=== PATIENT | female | born 1940 | race Two or more races ===

== ENCOUNTER 2022-02-02 20:19 | Inpatient (IN) | payer MEDICARE, OTHER ==
[~2022-02-02] VITALS: Ht 162.6 cm; Wt 73.5 kg
[2022-02-02] MEDS ORDERED: ACETAMINOPHEN 325 MG TABLET PO PRN (23:30)
[2022-02-02] MEDS ORDERED: MAG HYDROX/AL HYDROX/SIMETH 30 ML UDC PO PRN (23:30)
[2022-02-02] MEDS ORDERED: DEXTROSE 50%-WATER 50 ML DISP.SYRIN IV PRN (23:30)
[2022-02-02] MEDS ORDERED: MAGNESIUM HYDROXIDE 30 ML UDC PO PRN (23:30)
[2022-02-02] MEDS ORDERED: Z GUARD REMEDY 4 OZ OINT TP PRN (23:30)
[2022-02-02] MEDS ORDERED: ONDANSETRON HCL/PF 4 MG/2 ML VIAL IVP PRN (23:30)
[2022-02-03] VITALS: BP 150/66
[2022-02-03] MEDS ORDERED: ASPIRIN 81 MG TAB.CHEW PO SCH ×2 (01:30)
[2022-02-03 04:00] VITALS: BP 134/69
[2022-02-03 06:34] LABS: BASOPHILS # (AUTO) 0.1 K/uL (0.0-0.2); BASOPHILS % (AUTO) 1.8 % (0.0-2.0); EOSINOPHILS % (AUTO) 5.1 % (0.0-6.0); HEMATOCRIT 28 % (33-45); HEMOGLOBIN 9.2 g/dL (11.5-14.8); LYMPHOCYTES # (AUTO) 1.4 K/uL (0.8-4.8); LYMPHOCYTES % (AUTO) 28.6 % (20.0-44.0); MEAN CORPUSCULAR HGB CONC 33 g/dl (31.0-36.0); MEAN CORPUSCULAR VOLUME 76 fL (82-100); MONOCYTES # (AUTO) 0.5 K/uL (0.1-1.30); MONOCYTES % (AUTO) 9.4 % (2.0-12.0); NEUTROPHILS # (AUTO) 2.8 K/uL (1.8-8.9); NEUTROPHILS % (AUTO) 55.1 % (43.0-81.0); PLATELET COUNT (AUTO) 141 K/uL (150-450); RED BLOOD CELL COUNT(AUTO) 3.68 MIL/uL (4.0-5.2); WHITE BLOOD COUNT (AUTO) 5.1 K/uL (4.3-11.0)
[2022-02-03 07:07] LABS: CHOLESTEROL 93 mg/dL (<200); HDL CHOLESTEROL 36 mg/dL (40-60); LDL 38 mg/dL (0-99); TRIGLYCERIDES 107 mg/dL (30-150)
[2022-02-03 07:21] LABS: CALCIUM, SERUM 8.4 mg/dL (8.5-10.1); CARBON DIOXIDE 31 mmol/L (21-32); CHLORIDE 105 mmol/L (98-107); CREATININE 1.4 mg/dL (0.6-1.3); GLUCOSE 254 mg/dL (74-106); MAGNESIUM 2.3 mg/dL (1.8-2.4); PHOSPHORUS 3.4 mg/dL (2.5-4.9); POTASSIUM 4.3 mmol/L (3.5-5.1); SODIUM SERUM 140 mmol/L (136-145); UREA NITROGEN, BLOOD 30 mg/dL (7-18)
[2022-02-03 08:00] VITALS: BP 127/52
[2022-02-03] MEDS: BLOOD SUGAR DIAGNOSTIC 1 EACH STRIP VI SCH ×4 (08:06→21:48)
[2022-02-03] MEDS: ASPIRIN 81 MG TAB.CHEW PO SCH (08:38)
[2022-02-03] MEDS: INSULIN REGULAR, HUMAN 100 UNIT/ML 3 ML VIAL SQ PRN ×3 (08:41→17:58)
[2022-02-03] MEDS ORDERED: ALEN70TA80 PO (08:46)
[2022-02-03] MEDS ORDERED: PARO10TA86 PO (08:46)
[2022-02-03] MEDS ORDERED: AMLO5TAB4 PO (08:46)
[2022-02-03] MEDS ORDERED: PREG100C PO (08:46)
[2022-02-03] MEDS ORDERED: POLY15DR40 EACHEYE (08:46)
[2022-02-03] MEDS ORDERED: PHEN57OI20 RC (08:46)
[2022-02-03] MEDS ORDERED: ERGO500093 PO (08:46)
[2022-02-03] MEDS ORDERED: CALC500T52 PO (08:46)
[2022-02-03] MEDS ORDERED: MAGN400O6 PO (08:46)
[2022-02-03] MEDS ORDERED: RIVA2.5T PO (08:46)
[2022-02-03] MEDS ORDERED: MULT-447 PO (08:46)
[2022-02-03] MEDS ORDERED: ACET-868 PO (08:46)
[2022-02-03] MEDS ORDERED: SENN-261 PO (08:46)
[2022-02-03] MEDS ORDERED: INSU100V7 SQ (08:46)
[2022-02-03] MEDS ORDERED: NA P133E RC (08:46)
[2022-02-03] MEDS ORDERED: DOCU-141 PO (08:46)
[2022-02-03] MEDS ORDERED: FURO-144 PO (08:46)
[2022-02-03] MEDS ORDERED: TRAM50TA2 PO (08:46)
[2022-02-03] MEDS ORDERED: GLUC1KIT IM (08:46)
[2022-02-03] MEDS ORDERED: BUPR100T5 PO (08:46)
[2022-02-03] MEDS ORDERED: CRAN425C6 PO (08:46)
[2022-02-03] MEDS ORDERED: CARV3.122 PO (08:46)
[2022-02-03] MEDS ORDERED: INSU100V39 SQ ×2 (08:46)
[2022-02-03] MEDS ORDERED: CLOB15OI3 TP (08:46)
[2022-02-03] MEDS ORDERED: ATOR40TA PO (08:46)
[2022-02-03] MEDS ORDERED: ASPI-1420 PO (08:46)
[2022-02-03] MEDS ORDERED: ASPIRIN EC 81 MG TABLET.DR PO SCH (10:00)
[2022-02-03] MEDS: PAROXETINE HCL 10 MG TABLET PO SCH (10:21)
[2022-02-03] MEDS: AMLODIPINE BESYLATE 5 MG TABLET PO SCH (10:22)
[2022-02-03] MEDS: CARVEDILOL 3.125 MG TABLET PO SCH ×2 (10:22→17:56)
[2022-02-03] MEDS: PREGABALIN 100 MG CAPSULE PO SCH ×2 (10:22→17:56)
[2022-02-03] MEDS ORDERED: GLUCAGON,HUMAN RECOMBINANT 1 MG/VIAL VIAL IM PRN (10:30)
[2022-02-03 10:40] LABS: THYROID STIMULATING HORMONE 1.639 uIU/mL (0.358-3.74)
[2022-02-03 12:00] VITALS: BP 145/53
[2022-02-03 16:00] VITALS: BP 111/50
[2022-02-03] MEDS: RIVAROXABAN 10 MG TABLET PO SCH (17:58)
[2022-02-03 20:53] VITALS: BP 109/49
[2022-02-03] MEDS: ATORVASTATIN 40 MG TABLET PO SCH (21:48)
[2022-02-03] MEDS: *INSULIN REGULAR(HUMULIN R)HUM 100 UNIT/ML VIAL SQ PRN (21:56)
[2022-02-03] MEDS: ZOLPIDEM TARTRATE 5 MG TABLET PO PRN (22:19)
[2022-02-04] VITALS: BP 100/44
[2022-02-04 04:00] VITALS: BP 143/49
[2022-02-04 07:06] LABS: BASOPHILS # (AUTO) 0.1 K/uL (0.0-0.2); BASOPHILS % (AUTO) 1.2 % (0.0-2.0); EOSINOPHILS % (AUTO) 5.3 % (0.0-6.0); HEMATOCRIT 28 % (33-45); HEMOGLOBIN 9.1 g/dL (11.5-14.8); LYMPHOCYTES # (AUTO) 1.4 K/uL (0.8-4.8); LYMPHOCYTES % (AUTO) 25.4 % (20.0-44.0); MEAN CORPUSCULAR HGB CONC 33 g/dl (31.0-36.0); MEAN CORPUSCULAR VOLUME 77 fL (82-100); MONOCYTES # (AUTO) 0.5 K/uL (0.1-1.30); MONOCYTES % (AUTO) 8.7 % (2.0-12.0); NEUTROPHILS # (AUTO) 3.3 K/uL (1.8-8.9); NEUTROPHILS % (AUTO) 59.4 % (43.0-81.0); PLATELET COUNT (AUTO) 142 K/uL (150-450); RED BLOOD CELL COUNT(AUTO) 3.63 MIL/uL (4.0-5.2); WHITE BLOOD COUNT (AUTO) 5.6 K/uL (4.3-11.0)
[2022-02-04] MEDS: BLOOD SUGAR DIAGNOSTIC 1 EACH STRIP VI SCH ×4 (07:30→21:35)
[2022-02-04 07:36] LABS: ALANINE AMINOTRANSFERASE 17 U/L (12-78); ALBUMIN 2.9 g/dL (3.4-5.0); ALKALINE PHOSPHATASE 51 U/L (46-116); ASPARTATE AMINOTRANSFERASE 16 U/L (15-37); BILIRUBIN,TOTAL 0.3 mg/dL (0.2-1.0); CALCIUM, SERUM 8.5 mg/dL (8.5-10.1); CARBON DIOXIDE 30 mmol/L (21-32); CHLORIDE 108 mmol/L (98-107); CREATININE 1.3 mg/dL (0.6-1.3); GLUCOSE 178 mg/dL (74-106); MAGNESIUM 2.4 mg/dL (1.8-2.4); PHOSPHORUS 3.6 mg/dL (2.5-4.9); POTASSIUM 4.3 mmol/L (3.5-5.1); SODIUM SERUM 142 mmol/L (136-145); TOTAL PROTEIN, SERUM 5.9 g/dL (6.4-8.2); UREA NITROGEN, BLOOD 26 mg/dL (7-18)
[2022-02-04 08:00] VITALS: BP 143/49
[2022-02-04] MEDS: RIVAROXABAN 10 MG TABLET PO SCH ×2 (09:00→18:14)
[2022-02-04] MEDS: PAROXETINE HCL 10 MG TABLET PO SCH (09:30)
[2022-02-04] MEDS: ASPIRIN 81 MG TAB.CHEW PO SCH (10:54)
[2022-02-04] MEDS: AMLODIPINE BESYLATE 5 MG TABLET PO SCH (10:55)
[2022-02-04] MEDS: PREGABALIN 100 MG CAPSULE PO SCH ×2 (10:56→18:12)
[2022-02-04] MEDS: CARVEDILOL 3.125 MG TABLET PO SCH ×2 (11:04→18:12)
[2022-02-04 12:00] VITALS: BP 141/50
[2022-02-04] MEDS: INSULIN REGULAR, HUMAN 100 UNIT/ML 3 ML VIAL SQ PRN (12:18)
[2022-02-04 16:00] VITALS: BP 136/55
[2022-02-04] MEDS: *INSULIN REGULAR(HUMULIN R)HUM 100 UNIT/ML VIAL SQ PRN ×2 (18:04→21:42)
[2022-02-04 20:00] VITALS: BP 138/63
[2022-02-04] MEDS: ATORVASTATIN 40 MG TABLET PO SCH (21:35)
[2022-02-05] VITALS: BP 116/45
[2022-02-05 04:00] VITALS: BP 128/52
[2022-02-05] MEDS: IV NS 0.9% 1,000 ML IV PRN (04:02)
[2022-02-05 08:00] VITALS: BP 137/50
[2022-02-05] MEDS: BLOOD SUGAR DIAGNOSTIC 1 EACH STRIP VI SCH ×4 (08:20→22:08)
[2022-02-05] MEDS: INSULIN REGULAR, HUMAN 100 UNIT/ML 3 ML VIAL SQ PRN ×3 (08:42→18:08)
[2022-02-05] MEDS: PAROXETINE HCL 10 MG TABLET PO SCH (08:48)
[2022-02-05] MEDS: ASPIRIN 81 MG TAB.CHEW PO SCH (08:48)
[2022-02-05] MEDS: AMLODIPINE BESYLATE 5 MG TABLET PO SCH (08:49)
[2022-02-05] MEDS: RIVAROXABAN 10 MG TABLET PO SCH ×2 (08:50→17:48)
[2022-02-05] MEDS: CARVEDILOL 3.125 MG TABLET PO SCH ×2 (08:51→17:46)
[2022-02-05] MEDS: PREGABALIN 100 MG CAPSULE PO SCH ×2 (08:51→17:46)
[2022-02-05 12:00] VITALS: BP 107/51
[2022-02-05] MEDS ORDERED: IOHEXOL-350 100 ML VIAL IV ONE (13:34)
[2022-02-05] MEDS ORDERED: CT SWABBABLE VALVE TRANS SET 1 EA INFUS.SET MC ONE (13:34)
[2022-02-05] MEDS ORDERED: IV NS 0.9% 250 ML IV ONE (13:34)
[2022-02-05] MEDS ORDERED: METOPROLOL TARTRATE INJ 5 MG/5 ML AMPUL ONE (13:48)
[2022-02-05] MEDS ORDERED: NITROGLYCERIN 4.9 GM SPRAY ONE (13:49)
[2022-02-05] MEDS ORDERED: METOPROLOL TARTRATE INJ 5 MG/5 ML AMPUL IVP PRN (14:00)
[2022-02-05] MEDS: NITROGLYCERIN 0.4 MG/TAB BOTTLE SL PRN (14:06)
[2022-02-05 16:00] VITALS: BP 117/61
[2022-02-05 17:57] LABS: IRON, SERUM 77 ug/dl (50-175); TOTAL IRON BINDING CAPACITY 322 ug/dl (250-450)
[2022-02-05 20:00] VITALS: BP 140/53
[2022-02-05] MEDS: *INSULIN REGULAR(HUMULIN R)HUM 100 UNIT/ML VIAL SQ PRN (22:11)
[2022-02-05] MEDS: ATORVASTATIN 40 MG TABLET PO SCH (22:13)
[2022-02-06] VITALS: BP 156/75
[2022-02-06] MEDS: IV NS 0.9% 1,000 ML IV PRN ×2 (01:05→15:33)
[2022-02-06 04:00] VITALS: BP 127/49
[2022-02-06 08:00] VITALS: BP 122/51
[2022-02-06] MEDS: BLOOD SUGAR DIAGNOSTIC 1 EACH STRIP VI SCH ×4 (08:09→21:38)
[2022-02-06] MEDS: INSULIN REGULAR, HUMAN 100 UNIT/ML 3 ML VIAL SQ PRN ×2 (08:46→12:25)
[2022-02-06] MEDS: PREGABALIN 100 MG CAPSULE PO SCH ×2 (08:47→17:16)
[2022-02-06] MEDS: RIVAROXABAN 10 MG TABLET PO SCH ×2 (08:49→17:18)
[2022-02-06] MEDS: AMLODIPINE BESYLATE 5 MG TABLET PO SCH (08:49)
[2022-02-06] MEDS: PAROXETINE HCL 10 MG TABLET PO SCH (08:50)
[2022-02-06] MEDS: ASPIRIN 81 MG TAB.CHEW PO SCH (08:50)
[2022-02-06] MEDS: CARVEDILOL 3.125 MG TABLET PO SCH ×2 (08:51→17:16)
[2022-02-06 12:00] VITALS: BP 114/45
[2022-02-06 16:00] VITALS: BP 128/47
[2022-02-06] MEDS: ATORVASTATIN 40 MG TABLET PO SCH (21:38)
[2022-02-06] MEDS: *INSULIN REGULAR(HUMULIN R)HUM 100 UNIT/ML VIAL SQ PRN (21:40)
[2022-02-06 22:00] VITALS: BP 120/52
[2022-02-07] VITALS: BP 120/52
[2022-02-07 04:00] VITALS: BP 131/68
[2022-02-07] MEDS: IV NS 0.9% 1,000 ML IV PRN ×3 (05:54→20:12)
[2022-02-07 08:00] VITALS: BP 112/55
[2022-02-07] MEDS: PREGABALIN 100 MG CAPSULE PO SCH ×2 (08:13→16:43)
[2022-02-07] MEDS: RIVAROXABAN 10 MG TABLET PO SCH ×2 (08:15→16:43)
[2022-02-07] MEDS: ASPIRIN 81 MG TAB.CHEW PO SCH (08:16)
[2022-02-07] MEDS: CARVEDILOL 3.125 MG TABLET PO SCH ×2 (08:16→16:42)
[2022-02-07] MEDS: PAROXETINE HCL 10 MG TABLET PO SCH (08:17)
[2022-02-07] MEDS: AMLODIPINE BESYLATE 5 MG TABLET PO SCH (08:17)
[2022-02-07] MEDS: INSULIN REGULAR, HUMAN 100 UNIT/ML 3 ML VIAL SQ PRN (08:19)
[2022-02-07] MEDS: BLOOD SUGAR DIAGNOSTIC 1 EACH STRIP VI SCH ×4 (08:20→22:05)
[2022-02-07] MEDS: *INSULIN REGULAR(HUMULIN R)HUM 100 UNIT/ML VIAL SQ PRN ×2 (11:52→22:07)
[2022-02-07 16:00] VITALS: BP 110/59
[2022-02-07] MEDS: GLUCERNA SHAKE 237 ML CAN PO SCH (16:44)
[2022-02-07 20:00] VITALS: BP 131/63
[2022-02-07] MEDS: ATORVASTATIN 40 MG TABLET PO SCH (22:05)
[2022-02-08] MEDS: ZOLPIDEM TARTRATE 5 MG TABLET PO PRN (00:45)
[2022-02-08 04:00] VITALS: BP 146/66
[2022-02-08 06:27] LABS: BASOPHILS # (AUTO) 0.1 K/uL (0.0-0.2); BASOPHILS % (AUTO) 1.5 % (0.0-2.0); HEMATOCRIT 27 % (33-45); HEMOGLOBIN 8.6 g/dL (11.5-14.8); LYMPHOCYTES % (AUTO) 23.6 % (20.0-44.0); MEAN CORPUSCULAR HGB CONC 32 g/dl (31.0-36.0); MEAN CORPUSCULAR VOLUME 79 fL (82-100); MONOCYTES # (AUTO) 0.4 K/uL (0.1-1.30); MONOCYTES % (AUTO) 9.4 % (2.0-12.0); NEUTROPHILS # (AUTO) 2.4 K/uL (1.8-8.9); NEUTROPHILS % (AUTO) 58.5 % (43.0-81.0); PLATELET COUNT (AUTO) 122 K/uL (150-450); WHITE BLOOD COUNT (AUTO) 4.2 K/uL (4.3-11.0)
[2022-02-08 07:14] LABS: CALCIUM, SERUM 8.1 mg/dL (8.5-10.1); CREATININE 0.9 mg/dL (0.6-1.3); MAGNESIUM 2.1 mg/dL (1.8-2.4); PHOSPHORUS 3.2 mg/dL (2.5-4.9); POTASSIUM 3.8 mmol/L (3.5-5.1)
[2022-02-08] MEDS: BLOOD SUGAR DIAGNOSTIC 1 EACH STRIP VI SCH ×4 (07:30→22:09)
[2022-02-08 08:00] VITALS: BP 147/83
[2022-02-08] MEDS: PAROXETINE HCL 10 MG TABLET PO SCH (08:59)
[2022-02-08] MEDS: PREGABALIN 100 MG CAPSULE PO SCH ×2 (09:03→16:21)
[2022-02-08] MEDS: CARVEDILOL 3.125 MG TABLET PO SCH ×2 (09:03→16:21)
[2022-02-08] MEDS: AMLODIPINE BESYLATE 5 MG TABLET PO SCH (09:03)
[2022-02-08] MEDS: RIVAROXABAN 10 MG TABLET PO SCH ×2 (09:05→16:23)
[2022-02-08] MEDS: INSULIN REGULAR, HUMAN 100 UNIT/ML 3 ML VIAL SQ PRN ×3 (09:06→17:47)
[2022-02-08] MEDS: GLUCERNA SHAKE 237 ML CAN PO SCH ×2 (09:12→16:21)
[2022-02-08] MEDS: ASPIRIN 81 MG TAB.CHEW PO SCH (09:12)
[2022-02-08 09:26] LABS: BILIRUBIN,URINE NEGATIVE (NEGATIVE); COLOR,URINE YELLOW (YELLOW); LEUKOCYTE ESTERASE ,URINE LARGE (NEGATIVE); NITRITE, URINE NEGATIVE (NEGATIVE); PROTEIN,URINE TRACE mg/dl (NEGATIVE); UGLUCOSE NEGATIVE (NEGATIVE); UROBILINOGEN,URINE 0.2 EU/dL (0.2)
[2022-02-08 09:49] LABS: BACTERIA,URINE Many /HPF (None Seen); SQUAMOUS EPITHELIAL CELL,UR Rare /HPF (None Seen); WBC,URINE TOO NUMEROUS TO COUN /HPF (0-3)
[2022-02-08 12:00] VITALS: BP 138/68
[2022-02-08] MEDS: IV NS 0.9% 1,000 ML IV PRN (14:47)
[2022-02-08 16:00] VITALS: BP 124/48
[2022-02-08] MEDS: CEFTRIAXONE 1 G in IV D5W 50 ML IV SCH (16:21)
[2022-02-08 20:00] VITALS: BP 121/43
[2022-02-08] MEDS: ATORVASTATIN 40 MG TABLET PO SCH (21:05)
[2022-02-08] MEDS: *INSULIN REGULAR(HUMULIN R)HUM 100 UNIT/ML VIAL SQ PRN (22:09)
[2022-02-09] MEDS: NITROGLYCERIN 0.4 MG/TAB BOTTLE SL PRN (02:49)
[2022-02-09 04:00] VITALS: BP 143/56
[2022-02-09 04:47] LABS: BASOPHILS # (AUTO) 0.1 K/uL (0.0-0.2); BASOPHILS % (AUTO) 1.2 % (0.0-2.0); EOSINOPHILS % (AUTO) 6.6 % (0.0-6.0); HEMATOCRIT 26 % (33-45); HEMOGLOBIN 8.2 g/dL (11.5-14.8); LYMPHOCYTES # (AUTO) 1.2 K/uL (0.8-4.8); LYMPHOCYTES % (AUTO) 22.7 % (20.0-44.0); MEAN CORPUSCULAR HGB CONC 32 g/dl (31.0-36.0); MEAN CORPUSCULAR VOLUME 78 fL (82-100); MONOCYTES # (AUTO) 0.5 K/uL (0.1-1.30); MONOCYTES % (AUTO) 10.3 % (2.0-12.0); NEUTROPHILS # (AUTO) 3.1 K/uL (1.8-8.9); NEUTROPHILS % (AUTO) 59.2 % (43.0-81.0); PLATELET COUNT (AUTO) 142 K/uL (150-450); RED BLOOD CELL COUNT(AUTO) 3.27 MIL/uL (4.0-5.2); WHITE BLOOD COUNT (AUTO) 5.2 K/uL (4.3-11.0)
[2022-02-09 05:06] LABS: ALBUMIN 2.7 g/dL (3.4-5.0); CARBON DIOXIDE 27 mmol/L (21-32); CHLORIDE 111 mmol/L (98-107); CREATININE 1.1 mg/dL (0.6-1.3); GLUCOSE 296 mg/dL (74-106); MAGNESIUM 2.1 mg/dL (1.8-2.4); PHOSPHORUS 3.2 mg/dL (2.5-4.9); POTASSIUM 4.1 mmol/L (3.5-5.1); SODIUM SERUM 143 mmol/L (136-145); UREA NITROGEN, BLOOD 14 mg/dL (7-18)
[2022-02-09 05:30] LABS: ALANINE AMINOTRANSFERASE 15 U/L (12-78); ALKALINE PHOSPHATASE 54 U/L (46-116); ASPARTATE AMINOTRANSFERASE 13 U/L (15-37); BILIRUBIN,TOTAL 0.2 mg/dL (0.2-1.0); TOTAL PROTEIN, SERUM 5.8 g/dL (6.4-8.2)
[2022-02-09] MEDS ORDERED: IV NS 0.9% 1,000 ML ONE (06:21)
[2022-02-09] MEDS ORDERED: IV SET PRIMARY PUMP SET 1 EA INFUS.SET MC ONE (06:21)
[2022-02-09] MEDS ORDERED: IODIXANOL 150 ML IV ONE (06:22)
[2022-02-09] MEDS ORDERED: NITROGLYCERIN IN 5 % DEXTROSE 0 ML IV ONE (06:23)
[2022-02-09] MEDS ORDERED: LIDOCAINE HCL/MPF 1% 30 ML VIAL IJ ONE (06:29)
[2022-02-09] MEDS ORDERED: FENTANYL PF 100MCG/2ML AMPUL ONE (07:04)
[2022-02-09] MEDS ORDERED: MIDAZOLAM HCL 2 MG/2ML VIAL ONE ×2 (07:05)
[2022-02-09] MEDS: IV NS 0.9% 1,000 ML IV PRN (07:23)
[2022-02-09] MEDS: GLUCERNA SHAKE 237 ML CAN PO SCH ×2 (08:00→17:00)
[2022-02-09 08:35] VITALS: BP 144/64
[2022-02-09 09:00] VITALS: BP 144/64
[2022-02-09] MEDS: PAROXETINE HCL 10 MG TABLET PO SCH (09:00)
[2022-02-09] MEDS: AMLODIPINE BESYLATE 5 MG TABLET PO SCH (09:00)
[2022-02-09] MEDS: CARVEDILOL 3.125 MG TABLET PO SCH ×2 (09:00→17:31)
[2022-02-09] MEDS: PREGABALIN 100 MG CAPSULE PO SCH ×2 (09:00→17:31)
[2022-02-09] MEDS: RIVAROXABAN 10 MG TABLET PO SCH ×2 (09:00→17:39)
[2022-02-09] MEDS: VALSARTAN 80 MG TABLET PO SCH (09:00)
[2022-02-09] MEDS: ASPIRIN 81 MG TAB.CHEW PO SCH (09:00)
[2022-02-09] MEDS: BLOOD SUGAR DIAGNOSTIC 1 EACH STRIP VI SCH ×4 (09:26→22:15)
[2022-02-09] MEDS: FUROSEMIDE 40 MG/4 ML VIAL IV SCH ×3 (10:48→17:31)
[2022-02-09] MEDS: INSULIN REGULAR, HUMAN 100 UNIT/ML 3 ML VIAL SQ PRN ×3 (10:56→17:51)
[2022-02-09 12:00] VITALS: BP 132/55
[2022-02-09] MEDS: CEFTRIAXONE 1 G in IV D5W 50 ML IV SCH (16:33)
[2022-02-09 19:10] VITALS: BP 134/74
[2022-02-09 20:00] VITALS: BP 138/59
[2022-02-09] MEDS: ATORVASTATIN 40 MG TABLET PO SCH (22:17)
[2022-02-09] MEDS: *INSULIN REGULAR(HUMULIN R)HUM 100 UNIT/ML VIAL SQ PRN (22:18)
[2022-02-10] VITALS: BP 134/50
[2022-02-10 04:00] VITALS: BP 114/49
[2022-02-10] MEDS: BLOOD SUGAR DIAGNOSTIC 1 EACH STRIP VI SCH ×3 (06:29→17:19)
[2022-02-10 07:22] LABS: BASOPHILS # (AUTO) 0.1 K/uL (0.0-0.2); BASOPHILS % (AUTO) 1.1 % (0.0-2.0); EOSINOPHILS % (AUTO) 7.6 % (0.0-6.0); HEMATOCRIT 27 % (33-45); LYMPHOCYTES # (AUTO) 1.3 K/uL (0.8-4.8); LYMPHOCYTES % (AUTO) 23.6 % (20.0-44.0); MEAN CORPUSCULAR HGB CONC 33 g/dl (31.0-36.0); MEAN CORPUSCULAR VOLUME 77 fL (82-100); MONOCYTES # (AUTO) 0.6 K/uL (0.1-1.30); MONOCYTES % (AUTO) 10.3 % (2.0-12.0); NEUTROPHILS # (AUTO) 3.1 K/uL (1.8-8.9); NEUTROPHILS % (AUTO) 57.4 % (43.0-81.0); PLATELET COUNT (AUTO) 139 K/uL (150-450); RED BLOOD CELL COUNT(AUTO) 3.55 MIL/uL (4.0-5.2); WHITE BLOOD COUNT (AUTO) 5.4 K/uL (4.3-11.0)
[2022-02-10 07:35] LABS: ALANINE AMINOTRANSFERASE 13 U/L (12-78); ALBUMIN 2.8 g/dL (3.4-5.0); ALKALINE PHOSPHATASE 51 U/L (46-116); ASPARTATE AMINOTRANSFERASE 17 U/L (15-37); BILIRUBIN,TOTAL 0.2 mg/dL (0.2-1.0); CALCIUM, SERUM 8.3 mg/dL (8.5-10.1); CARBON DIOXIDE 30 mmol/L (21-32); CHLORIDE 108 mmol/L (98-107); GLUCOSE 135 mg/dL (74-106); MAGNESIUM 2.1 mg/dL (1.8-2.4); PHOSPHORUS 4.3 mg/dL (2.5-4.9); POTASSIUM 3.6 mmol/L (3.5-5.1); SODIUM SERUM 142 mmol/L (136-145); UREA NITROGEN, BLOOD 16 mg/dL (7-18)
[2022-02-10 08:00] VITALS: BP 132/57
[2022-02-10] MEDS: PREGABALIN 100 MG CAPSULE PO SCH ×2 (08:38→16:40)
[2022-02-10] MEDS: CARVEDILOL 3.125 MG TABLET PO SCH ×2 (08:39→16:41)
[2022-02-10] MEDS: AMLODIPINE BESYLATE 5 MG TABLET PO SCH (08:39)
[2022-02-10] MEDS: ASPIRIN 81 MG TAB.CHEW PO SCH (08:39)
[2022-02-10] MEDS: RIVAROXABAN 10 MG TABLET PO SCH ×2 (08:41→16:42)
[2022-02-10] MEDS: VALSARTAN 80 MG TABLET PO SCH (08:42)
[2022-02-10] MEDS: GLUCERNA SHAKE 237 ML CAN PO SCH ×2 (08:42→16:41)
[2022-02-10] MEDS: PAROXETINE HCL 10 MG TABLET PO SCH (08:42)
[2022-02-10] MEDS ORDERED: FUROSEMIDE 40 MG TABLET PO SCH (11:00)
[2022-02-10] MEDS: INSULIN REGULAR, HUMAN 100 UNIT/ML 3 ML VIAL SQ PRN ×2 (11:53→17:15)
[2022-02-10 12:00] VITALS: BP 95/50
[2022-02-10 16:00] VITALS: BP 111/54
[2022-02-10] MEDS: CEFTRIAXONE 1 G in IV D5W 50 ML IV SCH (16:36)
[2022-02-10 16:41] VITALS: BP 111/54
[2022-02-11] MEDS ORDERED: VALSARTAN 80 MG TABLET PO SCH (09:00)
== END 2022-02-10 18:36 | DRG 280 ==
LOC: TELE1 22:52 → MEDSG1 02-06 12:17 → ICU 02-09 08:10 → TELE1 02-09 15:37
PROVIDERS: ADMIT Nurse Practitioner Acute Care
PROC: 05HB33Z Insertion of Infusion Device into Right Basilic Vein, Percutaneous Approach (ICD-10-PCS; 2022-02-04)
PROC: 05HC33Z Insertion of Infusion Device into Left Basilic Vein, Percutaneous Approach (ICD-10-PCS; 2022-02-05)
PROC: 4A023N7 Measurement of Cardiac Sampling and Pressure, Left Heart, Percutaneous Approach (ICD-10-PCS; principal; 2022-02-09)
PROC: B211YZZ Fluoroscopy of Multiple Coronary Arteries using Other Contrast (ICD-10-PCS; 2022-02-09)
PROC: B41FYZZ Fluoroscopy of Right Lower Extremity Arteries using Other Contrast (ICD-10-PCS; 2022-02-09)
DX: I25.10 Atherosclerotic heart disease of native coronary artery without angina pectoris (principal); I21.A1 Myocardial infarction type 2; N17.0 Acute kidney failure with tubular necrosis; Z86.73 Personal history of transient ischemic attack (TIA), and cerebral infarction without residual deficits; J45.909 Unspecified asthma, uncomplicated; I10 Essential (primary) hypertension; N28.1 Cyst of kidney, acquired; E11.65 Type 2 diabetes mellitus with hyperglycemia; D50.9 Iron deficiency anemia, unspecified; D63.8 Anemia in other chronic diseases classified elsewhere
CPT/HCPCS: 36410; 36415; 71045-TC; 75574; 76770-TC; 80048-TC; 80053-TC; 80061-TC; 81001; 82962-TC; 83540-TC; 83735-TC; 83880; 84100-TC; 84439-TC; 84443-TC; 84484-TC; 85025-TC; 85378-TC; 85610-TC; 85730-TC; 87086-TC; 87186-TC; 93307-TC; 97530-TC; C1887; C1894; G0378; G0500; J0696; J1644; J1815; J1940; J2250; J3010; J3490; J7030; J7050; J7060; Q9967